=== PATIENT | female | born 1940 | race Caucasian/White ===

== ENCOUNTER 2018-07-22 13:57 | Inpatient (IN) | payer MEDICARE, MEDICAID ==
[~2018-07-22] VITALS: Ht 157.5 cm; Wt 39.5 kg
[~2018-07-22 13:57] MED LIST: BRIM5DRO EACHEYE; CELL5 PO; DILT180C66 PO; FLUO-124 PO; LEVVL SQ; OMEP20TA2 PO; PRED5TAB48 PO; PREDNISONE 5MG TABLET PO NR; PROG1 PO; TIMO15DR12 EACHEYE; TRAV2.5D EACHEYE
[2018-07-22] MEDS ORDERED: SODIUM CHLORIDE 0.9% 500 ML IV ONE (18:30)
[2018-07-22 18:43] LABS: CLARITY URINE TURBID (CLEAR); COLOR URINE YELLOW (YELLOW); KETONES URINE NEGATIVE (NEGATIVE); LEUKOCYTE ESTERASE URINE 3+ (NEGATIVE); NITRITE URINE NEGATIVE (NEGATIVE); OCCULT BLOOD URINE TRACE (NEGATIVE); PH URINE >=9.0 (4.5-8.0); PROTEIN URINE 3+ (NEGATIVE); SPECIFIC GRAVITY URINE 1.015 (1.005-1.030); UROBILINOGEN URINE 0.2 E.U./dL (0.2-1.0)
[2018-07-22 19:03] LABS: *BARBITURATES SCREEN URINE NEGATIVE (NEGATIVE); *BENZODIAZEPINES SCREEN URINE NEGATIVE (NEGATIVE); *COCAINE SCREEN URINE NEGATIVE (NEGATIVE); METHADONE URINE SCREEN NEGATIVE (NEGATIVE); OPIATES URINE SCREEN NEGATIVE (NEGATIVE)
[2018-07-22 19:04] LABS: *AMPHETAMINES SCREEN URINE NEGATIVE (NEGATIVE); CANNABINOID URINE SCREEN NEGATIVE (NEGATIVE); PHENCYCLIDINE URINE SCREEN NEGATIVE (NEGATIVE)
[2018-07-22 19:05] LABS: BASOPHILS % 0.3 % (0.0-2.0); EOSINOPHILS % 1.1 % (0.0-5.0); HEMATOCRIT. 35.1 % (36.0-48.0); HEMOGLOBIN. 11.7 g/dL (12.0-16.0); LYMPHOCYTES % 12.9 % (20.0-50.0); MEAN CORPUSCULAR VOLUME 92.9 fL (81.0-99.0); MEAN PLATELET VOLUME 10.4 fl (7.4-10.4); MONOCYTES % 4.3 % (2.0-8.0); NEUTROPHILS % 81.4 % (40.0-76.0); PLATELET 203 x1000/uL (130-400); RED BLOOD CELL COUNT 3.78 mill/uL (4.2-5.4); RED CELL DISTRIBUTION WIDTH 13.5 % (11.6-14.6)
[2018-07-22 19:09] LABS: CHLORIDE 102 mEq/L (98-107)
[2018-07-22] MEDS ORDERED: MYCOPHENOLATE MOFETIL 500MG TABLET PO SCH (21:00)
[2018-07-22] MEDS ORDERED: TACROLIMUS 1MG CAPSULE PO SCH (21:00)
[2018-07-22] MEDS ORDERED: CEFTRIAXONE 1 G PREMIX 50 ML IV ONE (21:45)
[2018-07-22] MEDS ORDERED: INSULIN REGULAR (HUMULIN R) 300UNITS/3ML SUBCUT ONE (22:15)
[2018-07-22] MEDS ORDERED: ACETAMINOPHEN 325MG TABLET PO PRN (23:30)
[2018-07-22] MEDS ORDERED: ONDANSETRON HCL 4MG/2ML INJ IV PRN (23:30)
[2018-07-23] MEDS ORDERED: LEVOFLOXACIN 250MG PREMIX 50 ML IV SCH (04:00)
[2018-07-23] MEDS: CLONIDINE 0.1MG TABLET PO PRN ×2 (04:33→10:44)
[2018-07-23 05:17] LABS: CHLORIDE 108 mEq/L (98-107)
[2018-07-23 05:18] LABS: HEMATOCRIT. 36.9 % (36.0-48.0); HEMOGLOBIN. 12.4 g/dL (12.0-16.0); MEAN CORPUSCULAR HEMOGLOBIN 31.5 pg (28.0-32.0); MEAN PLATELET VOLUME 10.4 fl (7.4-10.4); PLATELET 183 x1000/uL (130-400); RED BLOOD CELL COUNT 3.93 mill/uL (4.2-5.4); RED CELL DISTRIBUTION WIDTH 13.7 % (11.6-14.6)
[2018-07-23 05:31] LABS: LDL CHOLESTEROL 80 mg/dL (5-100)
[2018-07-23 05:33] LABS: HDL CHOLESTEROL 49 mg/dL (40-59); T4 FREE 1.15 ng/dL (0.76-1.46)
[2018-07-23 10:16] LABS: PLATELET ESTIMATE NORMAL
[2018-07-23 12:00] VITALS: BP 187/85
[2018-07-23] MEDS ORDERED: TACROLIMUS 1MG CAPSULE PO SCH (12:00)
[2018-07-23] MEDS ORDERED: MYCOPHENOLATE MOFETIL 500MG TABLET PO SCH (12:00)
[2018-07-23] MEDS: SODIUM CHLORIDE 0.45% 1,000 ML IV SCH ×2 (12:42→17:40)
[2018-07-23] MEDS: DILTIAZEM HCL 180MG CAPSULE CD 24HR PO SCH ×2 (13:05→21:00)
[2018-07-23] MEDS: PREDNISONE 5MG TABLET PO NR (13:05)
[2018-07-23] MEDS: ASPIRIN 81MG EC TABLET PO SCH (13:06)
[2018-07-23] MEDS ORDERED: HYDRALAZINE 20MG/ML VIAL IV SCH (13:45)
[2018-07-23 15:11] VITALS: BP 187/85
[2018-07-23] MEDS ORDERED: HYDRALAZINE 20MG/ML VIAL IV NR (15:30)
[2018-07-23 16:00] VITALS: BP 111/48
[2018-07-23] MEDS ORDERED: FLUOXETINE HCL 10 MG CAPSULE PO SCH (17:30)
[2018-07-23] MEDS: FLUOXETINE HCL 20MG CAPSULE PO SCH (17:40)
[2018-07-23 20:00] VITALS: BP 110/53
[2018-07-23] MEDS: CEFTRIAXONE 1 G PREMIX 50 ML IV SCH (21:35)
[2018-07-23] MEDS: MEMANTINE HCL 5MG TABLET PO SCH (21:36)
[2018-07-23] MEDS: TACROLIMUS 1MG CAPSULE PO SCH (21:36)
[2018-07-23] MEDS: MYCOPHENOLATE MOFETIL 500MG TABLET PO SCH (21:36)
[2018-07-24] VITALS (7 sets, daily range): BP systolic 128–149; BP diastolic 52–80
[2018-07-24] MEDS: SODIUM CHLORIDE 0.45% 1,000 ML IV SCH (05:06)
[2018-07-24] MEDS: FLUOXETINE HCL 20MG CAPSULE PO SCH (09:02)
[2018-07-24] MEDS: DILTIAZEM HCL 180MG CAPSULE CD 24HR PO SCH ×2 (09:02→21:50)
[2018-07-24] MEDS: TACROLIMUS 1MG CAPSULE PO SCH ×2 (09:03→21:50)
[2018-07-24] MEDS: ASPIRIN 81MG EC TABLET PO SCH (09:03)
[2018-07-24] MEDS: MEMANTINE HCL 5MG TABLET PO SCH ×2 (09:03→21:50)
[2018-07-24] MEDS: PREDNISONE 5MG TABLET PO SCH (09:03)
[2018-07-24] MEDS: MYCOPHENOLATE MOFETIL 500MG TABLET PO SCH ×2 (09:03→21:50)
[2018-07-24 10:47] LABS: HEMATOCRIT 36.4 % (36.0-48.0); HEMOGLOBIN 11.9 g/dL (12.0-16.0); MEAN CORPUSCULAR HEMOGLOBIN 30.7 pg (28.0-32.0); MEAN CORPUSCULAR VOLUME 93.5 fL (81.0-99.0); PLATELET 202 x1000/uL (130-400); RED BLOOD CELL COUNT 3.89 mill/uL (4.2-5.4); RED CELL DISTRIBUTION WIDTH 13.8 % (11.6-14.6)
[2018-07-24 11:38] LABS: CHLORIDE 101 mEq/L (98-107)
[2018-07-24] MEDS: SODIUM CHLORIDE 0.9% 1,000 ML IV SCH ×2 (13:13→21:51)
[2018-07-24] MEDS: PREDNISONE 5MG TABLET PO NR (13:14)
[2018-07-24] MEDS ORDERED: DEXTROSE 50% WATER 50ML SYRINGE IV PRN (13:45)
[2018-07-24] MEDS: BLOOD SUGAR DIAGNOSTIC STRIP TEST SCH ×2 (16:45→20:36)
[2018-07-24] MEDS ORDERED: INSULIN LISPRO 100 UNITS/ML SUBCUT SCH (17:15)
[2018-07-24] MEDS: INSULIN LISPRO 100 UNITS/ML SUBCUT SCH ×2 (18:11→21:50)
[2018-07-24] MEDS: CEFTRIAXONE 1 G PREMIX 50 ML IV SCH (21:49)
[2018-07-25] VITALS: BP 143/67
[2018-07-25 04:00] VITALS: BP 118/54
[2018-07-25] MEDS: BLOOD SUGAR DIAGNOSTIC STRIP TEST SCH ×3 (06:30→16:45)
[2018-07-25] MEDS: INSULIN LISPRO 100 UNITS/ML SUBCUT SCH ×3 (07:15→17:55)
[2018-07-25 08:00] VITALS: BP 148/56
[2018-07-25] MEDS: ASPIRIN 81MG EC TABLET PO SCH (10:49)
[2018-07-25] MEDS: MYCOPHENOLATE MOFETIL 500MG TABLET PO SCH (10:49)
[2018-07-25] MEDS: TACROLIMUS 1MG CAPSULE PO SCH (10:50)
[2018-07-25] MEDS: DILTIAZEM HCL 180MG CAPSULE CD 24HR PO SCH (10:50)
[2018-07-25] MEDS: PREDNISONE 5MG TABLET PO SCH (10:51)
[2018-07-25] MEDS: FLUOXETINE HCL 20MG CAPSULE PO SCH (10:51)
[2018-07-25] MEDS: MEMANTINE HCL 5MG TABLET PO SCH (10:51)
[2018-07-25 12:00] VITALS: BP 139/46
[2018-07-25 13:09] LABS: HEMATOCRIT 35.6 % (36.0-48.0); HEMOGLOBIN 11.5 g/dL (12.0-16.0); MEAN CORPUSCULAR HEMOGLOBIN 30.5 pg (28.0-32.0); MEAN CORPUSCULAR VOLUME 94.4 fL (81.0-99.0); PLATELET 222 x1000/uL (130-400); RED BLOOD CELL COUNT 3.76 mill/uL (4.2-5.4); RED CELL DISTRIBUTION WIDTH 13.8 % (11.6-14.6)
[2018-07-25] MEDS: PREDNISONE 5MG TABLET PO NR (13:13)
[2018-07-25 13:40] LABS: CHLORIDE 104 mEq/L (98-107)
[2018-07-25] MEDS ORDERED: INSULIN LISPRO 100 UNITS/ML SUBCUT NR (13:41)
[2018-07-25 16:00] VITALS: BP 118/118
[2018-07-25 18:42] VITALS: BP 118/55
== END 2018-07-25 19:15 | disposition home health service (06) | DRG 70 ==
LOC: ER 13:57 → 5WST 21:41 → EDBEDREQ 21:53 → EDBEDREQTM 21:53 → ENRESERV 07-23 09:15
PROVIDERS: ADMIT Internal Medicine; ATTEND Internal Medicine
DX: G93.41 Metabolic encephalopathy (principal); N18.6 End stage renal disease; N39.0 Urinary tract infection, site not specified; I13.2 Hypertensive heart and chronic kidney disease with heart failure and with stage 5 chronic kidney disease, or end stage renal disease; Z94.0 Kidney transplant status; E86.0 Dehydration; E11.22 Type 2 diabetes mellitus with diabetic chronic kidney disease; F03.90 Unspecified dementia, unspecified severity, without behavioral disturbance, psychotic disturbance, mood disturbance, and anxiety; E11.65 Type 2 diabetes mellitus with hyperglycemia; T68.XXXA Hypothermia, initial encounter; H40.9 Unspecified glaucoma; B96.4 Proteus (mirabilis) (morganii) as the cause of diseases classified elsewhere; Z99.2 Dependence on renal dialysis; Z88.1 Allergy status to other antibiotic agents; Z79.4 Long term (current) use of insulin; Z79.899 Other long term (current) drug therapy; X58.XXXA Exposure to other specified factors, initial encounter; Y93.89 Activity, other specified; Y92.89 Other specified places as the place of occurrence of the external cause; Y99.8 Other external cause status
CPT/HCPCS: 36415; 71045; 80048; 80061; 80305; 82140; 82533; 82962; 83036; 83605; 83735; 83880; 84439; 84443; 84484; 85027; 87077; 87186; 93005; 96361; 96365; 96375; 99285; J0360; J0696; J1815; J1956; J7030; J7040; J7507; J7512; J7517